=== PATIENT | female | born 1970 | race Caucasian/White ===

== ENCOUNTER → 2017-09-23 | Outpatient (CLI) | payer BC ==
--- NOTE | 2017-09-24 14:46 | MM ---
Reason for exam: screening (asymptomatic). Last mammogram was performed 3 years and 2 months ago. History: Family history of breast cancer in paternal grandmother at age 70. Physical Findings: A clinical breast exam by your physician is recommended on an annual basis and results should be correlated with mammographic findings. MG 3D Screening Mammo W/Cad Bilateral CC and MLO view(s) were taken. Prior study comparison: July 20, 2014, bilateral MG screening mammo w CAD. The breast tissue is heterogeneously dense. This may lower the sensitivity of mammography. Finding: There are typically benign round calcifications in the upper quadrant of both breasts. There is a chronic nodularity in the right breast. ASSESSMENT: Benign, BI-RAD 2 RECOMMENDATION: Routine screening mammogram of both breasts in 1 year.
== END | disposition home or self-care (01) ==
LOC: RADMAMWWP 09:14
PROVIDERS: ATTEND Family Medicine
DX: Z12.31 Encounter for screening mammogram for malignant neoplasm of breast (principal)
CPT/HCPCS: 77063; 77067

== ENCOUNTER → 2018-09-10 | Outpatient (CLI) | payer BC ==
[2018-09-10 14:12] LABS: Basophils % (A) 0 %; Eosinophils # (A) 0.2 k/uL (0-0.7); Eosinophils % (A) 2 %; HCT 42.7 % (34.0-46.0); HGB 13.7 gm/dL (11.4-16.0); Lymphocytes % (A) 31 %; MCH 29.9 pg (25.0-35.0); MCHC 32.2 g/dL (31.0-37.0); MCV 92.7 fL (80.0-100.0); Mean Platelet Volume 7.1; Monocytes # (A) 0.5 k/uL (0-1.0); Monocytes % (A) 5 %; Neutrophils # (A) 5.8 k/uL (1.3-7.7); Neutrophils % (A) 59 %; Platelet Count 285 k/uL (150-450); RDW 13.2 % (11.5-15.5); WBC 9.8 k/uL (3.8-10.6)
[2018-09-10 18:47] LABS: Albumin/Globulin Ratio 1.54 (1.20-2.10); Anion Gap 8.7 mmol/L (4.00-12.00); Calcium 9.3 mg/dL (8.7-10.3); Carbon Dioxide 23.3 mmol/L (21.6-31.8); Globulin 2.6 g/dL (1.6-3.3); Potassium 4.4 mmol/L (3.5-5.5); Total Bilirubin 0.5 mg/dL (0.2-1.2); Total Protein 6.6 g/dL (6.2-8.2)
[2018-09-10 18:55] LABS: T4, Free (Free Thyroxine) 1.1 ng/dL (0.80-1.80)
[2018-09-10 19:27] LABS: Vitamin D 25 Hydroxy 23.6 ng/mL (30.0-100.0)
== END ==
LOC: LABWHC1 13:19
PROVIDERS: ATTEND Nurse Practitioner Acute Care
DX: R56.9 Unspecified convulsions (principal)
CPT/HCPCS: 36415; 80053; 82306; 82607; 84439; 84443; 84481; 85025

== ENCOUNTER 2019-03-02 11:06 | Day surgery (SDC) | payer BC ==
[2019-02-26 11:45] VITALS: BMI 28.1
[~2019-03-02 11:06] MED LIST: LACTATED RINGERS 1,000 ML IV SCH; LIDOCAINE 1% 20 ML VIAL (10MG/ML) FOR IV START INTRADERMA PRN
[2019-03-02 11:34] VITALS: RESP 16; TEMP 97.9
[2019-03-02] MEDS ORDERED: LIDOCAINE 1% INJ 10MG/ML (20 ML MDV) ONE (13:03)
[2019-03-02] MEDS ORDERED: PROPOFOL 10 MG/ML 20 ML VIAL IV ONE (13:03)
--- NOTE | 2019-03-02 13:26 | P.PCN ---
Date of Procedure: 03/02/19 Description of Procedure: BRIEF HISTORY: Patient is a 48-year-old, pleasant, female patient who presents for outpatient EGD. The patient reports a sensation of dysphagia in the proximal esophagus. She also reports uncontrolled reflux for which she takes Tums as needed. No prior EGD reported. No unintentional loss or family history of esophageal or gastric cancer. PROCEDURE PERFORMED: Esophagogastroduodenoscopy with biopsy. PREOPERATIVE DIAGNOSIS: Esophageal dysphagia, GERD. ESTIMATED BLOOD LOSS: Minimal. IV sedation per anesthesia. PROCEDURE: After informed consent was obtained, the patient was brought into the endoscopy unit. IV sedation was administered by Anesthesia under continuous monitoring. Initially the Olympus GIF-190 video endoscope was inserted into the mouth. Esophagus intubated without any difficulty. It was gradually advanced into the stomach and duodenum and carefully examined. The bulb and the second part of the duodenum appeared normal, with biopsies taken. The scope at this time was withdrawn to the stomach, adequately insufflated with air, and upon careful examination, mucosa of the antrum, body, cardia and the fundus appeared normal, except for diffuse punctate erythema with some nodularity of the tissue the antrum and body suggestive of mild to moderate gastritis with biopsies taken. The scope was then withdrawn into the esophagus. The GE junction was located at 39 cm from the incisors and biopsied. The esophagus appeared normal and biopsied to rule out EOE. There were no erosions or ulcerations seen and the patient tolerated the procedure well. IMPRESSION: 1. Mild gastritis antrum and body, biopsied. 2. GE junction biopsy, duodenal biopsy, esophageal biopsy. RECOMMENDATIONS: The findings of this examination were discussed with the patient and her . Okay to resume diet. Have recommended the patient's her to trial of Prilosec OTC for symptom management daily. Await pathology from biopsies.
[2019-03-02 13:45] VITALS: BP 123/78; PULSE 61
== END 2019-03-02 14:26 | disposition home or self-care (01) ==
LOC: ORWHC2ENDO 11:06
PROVIDERS: ATTEND Internal Medicine
DX: K29.50 Unspecified chronic gastritis without bleeding (principal); K21.0 Gastro-esophageal reflux disease with esophagitis; R13.14 Dysphagia, pharyngoesophageal phase; Z87.891 Personal history of nicotine dependence; J45.909 Unspecified asthma, uncomplicated; D86.9 Sarcoidosis, unspecified; R56.9 Unspecified convulsions; Z79.1 Long term (current) use of non-steroidal anti-inflammatories (NSAID); Z79.899 Other long term (current) drug therapy; Z88.8 Allergy status to other drugs, medicaments and biological substances
CPT/HCPCS: 81025; 88305; 43239; J2001; J2704

== ENCOUNTER → 2020-08-08 | Outpatient (CLI) | payer BC ==
[2020-08-08 16:29] LABS: Basophils % (A) 0 %; Eosinophils # (A) 0.3 k/uL (0-0.7); Eosinophils % (A) 3 %; HCT 38.4 % (34.0-46.0); HGB 12.8 gm/dL (11.4-16.0); Lymphocytes # (A) 2.8 k/uL (1.0-4.8); Lymphocytes % (A) 29 %; MCH 30.7 pg (25.0-35.0); MCHC 33.5 g/dL (31.0-37.0); MCV 91.6 fL (80.0-100.0); Mean Platelet Volume 6.9; Monocytes # (A) 0.6 k/uL (0-1.0); Monocytes % (A) 7 %; Neutrophils # (A) 5.6 k/uL (1.3-7.7); Neutrophils % (A) 58 %; Platelet Count 277 k/uL (150-450); RBC 4.19 m/uL (3.80-5.40); RDW 13.4 % (11.5-15.5); WBC 9.5 k/uL (3.8-10.6)
[2020-08-08 16:38] LABS: African American GFR (CKD) >90 (>60 ml/min/1.73 sqM); Anion Gap 3 mmol/L; Blood Urea Nitrogen 18 mg/dL (7-17); Carbon Dioxide 27 mmol/L (22-30); Chloride 105 mmol/L (98-107); Glucose 83 mg/dL (74-99); Non-African American GFR(CKD) >90 (>60 ml/min/1.73 sqM); Potassium 4.6 mmol/L (3.5-5.1); Sodium 135 mmol/L (137-145)
== END | disposition home or self-care (01) ==
LOC: LABPAT 15:51
PROVIDERS: ATTEND Obstetrics & Gynecology
DX: Z01.818 Encounter for other preprocedural examination (principal); N81.6 Rectocele; N81.4 Uterovaginal prolapse, unspecified
CPT/HCPCS: 80051; 82565; 82947; 84520; 85025; 87086

== ENCOUNTER 2020-08-15 07:34 | Day surgery (SDC) | payer BC ==
[2020-08-03 14:07] VITALS: BMI 29.7
[~2020-08-15 07:34] MED LIST changes: +DEXAMETHASONE SOD PHOSPHATE 4 MG/ML 1 ML VIAL IV ONE; +HYDROmorphone 0.5 MG/0.5 ML SYRINGE IVP PRN; -LACTATED RINGERS 1,000 ML IV SCH; +LIDOCAINE 1% (10MG/ML) FOR IV START INTRADERMA PRN; -LIDOCAINE 1% 20 ML VIAL (10MG/ML) FOR IV START INTRADERMA PRN; +MIDAZOLAM 2 MG/2 ML VIAL IV PRN; +ONDANSETRON 4 MG/2 ML VIAL IVP ONE
[2020-08-15] MEDS: LACTATED RINGERS 1,000 ML IV SCH ×3 (08:08→20:30)
[2020-08-15] MEDS ORDERED: ONDANSETRON 4 MG/2 ML VIAL ONE (08:14)
[2020-08-15] MEDS ORDERED: DEXAMETHASONE SOD PHOSPHATE 4 MG/ML 1 ML VIAL IV ONE (08:25)
[2020-08-15] MEDS ORDERED: MIDAZOLAM 2 MG/2 ML VIAL IV ONE (08:38)
[2020-08-15] MEDS ORDERED: ROCURONIUM 10 MG/ML (10 ML VIAL) IV ONE (09:00)
[2020-08-15] MEDS ORDERED: PROPOFOL 10 MG/ML 20 ML VIAL IV ONE (09:00)
[2020-08-15] MEDS ORDERED: fentaNYL (PF) 50 MCG/ML 2 ML AMP ONE (09:00)
[2020-08-15] MEDS ORDERED: KETOROLAC 15 MG/ML 1 ML VIAL ONE (09:00)
[2020-08-15] MEDS ORDERED: MIDAZOLAM 2 MG/2 ML VIAL ONE (09:00)
[2020-08-15] MEDS ORDERED: SUCCINYLCHOLINE CHLORIDE 100 MG/5 ML SYR IV ONE (09:00)
[2020-08-15] MEDS ORDERED: MORPHINE SULFATE (PF) 0.3 MG/0.3 ML SYR ONE (09:00)
[2020-08-15] MEDS ORDERED: LIDOCAINE 1% INJ 10MG/ML (20 ML MDV) ONE (09:00)
[2020-08-15] MEDS ORDERED: GLYCOPYRROLATE 0.2 MG/ML 2 ML VIAL ONE (09:00)
[2020-08-15] MEDS ORDERED: NEOSTIGMINE 1 MG/ML 10 ML VIAL ONE (09:00)
[2020-08-15] MEDS ORDERED: BACITRACIN ZINC 500 UNIT/GM OINT 28.4 GM TUBE TOPICAL ONE (09:21)
[2020-08-15] MEDS ORDERED: VASOPRESSIN 20 UNIT/ML 1 ML VIAL SQ ONE (09:21)
[2020-08-15] MEDS ORDERED: LACTATED RINGERS 1,000 ML IV ONE (09:47)
[2020-08-15] MEDS ORDERED: METOCLOPRAMIDE 5 MG/ML 2 ML VIAL IVP PRN (10:34)
[2020-08-15] MEDS ORDERED: ONDANSETRON 4 MG/2 ML VIAL IVP PRN (10:34)
[2020-08-15] MEDS ORDERED: IBUPROFEN 600 MG TAB PO PRN (10:34)
[2020-08-15] MEDS ORDERED: SIMETHICONE 80 MG CHEWABLE PO PRN (10:34)
[2020-08-15] MEDS ORDERED: ZOLPIDEM 5 MG TAB PO PRN (10:34)
--- NOTE | 2020-08-15 10:34 | P.OP ---
Date of Procedure: 08/15/20 Preoperative Diagnosis: Symptomatic uterine prolapse, cystocele and rectocele. Postoperative Diagnosis: Same, normal-appearing ovaries bilaterally Procedure(s) Performed: Vaginal hysterectomy, anterior and posterior colporrhaphy's Anesthesia: ERAA Surgeon: Yadira Sullivan Vp Foundation #1: David Rodriguez Estimated Blood Loss (ml): 75 IV fluids (ml): 1,300 Urine output (ml): 200 Pathology: other (Cervix and uterus) Condition: stable Disposition: PACU Operative Findings: Normal-appearing ovaries bilaterally Description of Procedure: Patient is brought to the operating suite after spinal with Duramorph is placed in the preoperative area. She's placed in the dorsal lithotomy position after dental anesthetic is administered. Antibiotics are given. HCG is negative. The appropriate timeout was performed to assure proper patient and procedural identification. Bladder is drained for approximately 200 mL of clear yellow urine and the weighted speculum was placed into the vagina. Anterior lip of the cervix is grasped with a double-tooth tenaculum. The cervix is injected circumferentially with a dilute Pitressin solution. A standing rock blade scalpel is then used to incise the tissue circumferentially with a V position at 6:00. A sponge rolled finger is used to sweep the mucosa at all times well from the operative field to avoid bladder and/or ureteral injury. Peritoneum is entered with Metzenbaum scissors at 6:00, suture tied with 2-0 Vicryl and the large billed speculum was placed into the peritoneal cavity. Martin clamp is used on the right uterosacral cardinal ligament, this is clamped cut and suture ligated and held with a hemostat laterally. Same procedure is carried out contralaterally. Uterine vasculature is identified, clamped cut and suture ligated. 2 additional pedicles are taken superior to the vessels. The anterior peritoneum is entered at 12:00. Martin clamp was used around the final pedicles and the cervix and uterus are removed and sent to pathology for evaluation. 0 Vicryl suture is used to tie these pedicles, they are flashed and retied for excellent hemostasis. Sponge stick is then used to visualize the ovaries which are normal to inspection and therefore left in situ per patient's wishes. The shallow billed speculum is replaced now in the 2-0 Vicryl suture placed at 6:00 is brought around in a pursestring fashion to close the peritoneum. The uterosacral cardinal ligaments are now brought across to incorporate the opposite ligament as well as vaginal mucosa and the vaginal cough is closed. 2 additional [id number] sutures of 0 Vicryl used for final cuff closure. The anterior repair is then started. Allis clamps are used on the mucosa. It is injected in the midline with dilute Pitressin solution. Metzenbaum scissors are used to undermine the mucosa and it is opened to approximate 1.5 cm inferior to the urethra. Allis clamps are used to hold the vaginal mucosa in a fanlike fashion. Sponge rolled finger is used to sweep the mucosa from the underlying fascial plane. Villarreal catheter is placed in the urine is clear. 2-0 Vicryl sutures used in an interrupted fashion to bring the edges of the fascia together thereby completely reducing the cystocele. Metzenbaum scissors are used to trim the redundant mucosa. 2-0 Vicryl issues now in a running locking stitch to close the anterior repair. Hemostasis remained excellent. A triangular portion of tissue is removed from the perineal body. The posterior mucosa is injected in the midline with the same dilute Pitressin solution. Metzenbaum scissors are used to undermine the mucosa to the apex of the defect. A sponge rolled finger is used to sweep the fascia from the overlying mucosa. 2-0 Vicryl is used in an interrupted fashion to bring these edges of the fascia together in completely reduce the rectocele. Metzenbaum scissors trim the mucosa. 2-0 Vicryl is used in a running locking stitch to close the posterior repair with an episiotomy-like closure for final completion. The vagina is clean and dry. It is packed with 1/2 inch iodophor gauze with basic tracing. Villarreal is noted to be draining clear urine. All sponge needle and instrument counts are correct. Rectal exam revealed no defects. Patient is brought back to recovery room in excellent condition with stable vital signs including blood pressure 95/52, pulse 73, 99% O2 saturation. Estimated blood loss 75 mL, fluid replacement 1300 mL's.
[2020-08-15] MEDS: diphenhydrAMINE 50 MG/ML 1 ML VIAL IVP PRN ×2 (12:43→22:06)
--- NOTE | 2020-08-15 14:20 | P.ANPRN ---
Procedure Note - Anesthesia - Epidural/Spinal Spinal Time Out Performed: Yes Date of Procedure: 08/15/20 Procedure Start Time: 08:37 Procedure Stop Time: 08:40 Location of Patient: PreOp Indication: Acute Post-Operative Pain Sedation Type: Sedate with meaningful contact maintained Preparation: Sterile Dressing Position: Sitting Needle Guage: 25 Blood Aspirated: No Pain Paresthesia on Injection Noted: No Events: Uneventful and Well Tolerated (duramorph 300mcg plus fentanyl 25 mcg)
[2020-08-15] MEDS: SENNOSIDES-DOCUSATE SODIUM 1 EACH TAB PO SCH (22:05)
[2020-08-15] MEDS: KETOROLAC 15 MG/ML 1 ML VIAL IVP PRN (22:06)
[2020-08-16 02:02] VITALS: PULSE 80; RESP 16
[2020-08-16] MEDS: KETOROLAC 15 MG/ML 1 ML VIAL IVP PRN (07:23)
--- NOTE | 2020-08-16 07:44 | P.DS ---
Providers Date of admission: 08/15/20 Expected date of discharge: 08/16/20 Attending physician: Yadira Sullivan Primary care physician: [facility] Course: This is a 50-year-old white female who presented with increasingly symptomatic bulge per perineal body, cystocele and rectocele. After thorough consultation she elected to proceed with surgery. She declined the option of pessary. Second opinion offered and declined. Please see dictated history and physical for details. Patient was admitted yesterday and underwent a vaginal hysterectomy anterior and posterior colporrhaphy per my care. She did well intraoperatively with an estimate a blood loss of 75 mL's. Vaginal packing and Villarreal catheter were placed. Spinal with Duramorph was given. Please see dictated operative note for details. Ovaries appeared normal and were left in situ per the patient's wishes. This morning the patient is doing quite well. Her vital signs have remained stable and she is afebrile. Vaginal packing and Villarreal catheter had been roberto carlos vera. She is tolerating regular diet and passing flatus. Bladder training is pending. Her abdomen is soft and nontender. There is no CVA tenderness. She has active bowel sounds. She reports no pain. Only minimal vaginal bleeding is noted. Patient is judged to be in very good condition for discharge home. She will follow-up with me in the office in 2 weeks. I have reminded her no intercourse, tampons or douching. No heavy lifting, minimal stairclimbing, no driving for 2 weeks. She will use [id number] Advil or Aleve, or Motrin as needed for pain. I've asked her to call me with any fevers shakes or chills, foul smelling or bloody vaginal drainage, with difficulties regarding urination or defecation, with any pain not alleviated by [id number] products, or indeed with any concerns. Assessment: Doing well postoperative day #1 Patient Condition at Discharge: Good Plan - Discharge Summary New Discharge Prescriptions: No Action lamoTRIgine [LaMICtal] 100 mg PO BID Discharge Medication List lamoTRIgine [LaMICtal] 100 mg PO BID 02/26/19 [History] Follow up Appointment(s)/Referral(s): Yadira Sullivan MD [STAFF PHYSICIAN] - 2 Weeks Discharge Disposition: HOME SELF-CARE
[2020-08-16] MEDS: LACTATED RINGERS 1,000 ML IV SCH (07:46)
[2020-08-16 08:54] VITALS: BP 107/70; TEMP 98.5
[2020-08-16] MEDS ORDERED: lamoTRIgine 100 MG TAB PO SCH (09:00)
[2020-08-16] MEDS: SENNOSIDES-DOCUSATE SODIUM 1 EACH TAB PO SCH (09:07)
--- NOTE | 2020-08-16 09:37 | P.PN ---
Progress Note - Text Date: 08/16/2020 Time: 09:21 The patient is status post, vaginal hysterectomy. Postoperative day #1. Vital signs stable VAS: 0-1-10 Patient has no complaints of pain. The patient incurred some minimal itching yesterday, this itching is now subsiding. Pain meds to be managed by service.
== END 2020-08-16 10:40 | disposition home or self-care (01) ==
LOC: OR 07:34 → 6PED 10:20 → OR 08-16 10:40
PROVIDERS: ATTEND Obstetrics & Gynecology
DX: N81.4 Uterovaginal prolapse, unspecified (principal); D25.1 Intramural leiomyoma of uterus; N72 Inflammatory disease of cervix uteri; N80.0 Endometriosis of uterus; J45.909 Unspecified asthma, uncomplicated; Z87.442 Personal history of urinary calculi; J98.4 Other disorders of lung; F17.210 Nicotine dependence, cigarettes, uncomplicated; Z79.899 Other long term (current) drug therapy
CPT/HCPCS: 81025; 88307; 58260; 57250; J2250; J1200; J1100; J0690; J2405; J1885 ×2; 36415; 86850; 86900; 86901

== ENCOUNTER → 2020-09-19 | Outpatient (CLI) | payer BC ==
--- NOTE | 2020-09-19 12:09 | XR ---
EXAMINATION TYPE: XR chest 2V DATE OF EXAM: 09/19/2020 COMPARISON: NONE HISTORY: Chest pain TECHNIQUE: Frontal and lateral views of the chest are obtained. FINDINGS: There is no focal air space opacity. No evidence for pneumothorax. No pleural effusion. The cardiac silhouette size is within normal limits. The osseous structures are grossly intact. IMPRESSION: 1. No acute cardiopulmonary process.
== END | disposition home or self-care (01) ==
LOC: RADXRYALE 11:46
PROVIDERS: ATTEND Physician Assistant Medical
DX: D86.9 Sarcoidosis, unspecified (principal); R05 Cough
CPT/HCPCS: 71046

== ENCOUNTER → 2020-11-11 | Outpatient (CLI) | payer BC ==
--- NOTE | 2020-11-12 09:41 | CT ---
EXAMINATION TYPE: CT chest w con DATE OF EXAM: 11/11/2020 COMPARISON: None HISTORY: Sarcoidosis of lung, c/o SOB. CT DLP: 385.10 mGycm Automated exposure control for dose reduction was used. TECHNIQUE: CT scan of the chest is performed with IV Contrast, patient injected with 100 mL of Isovue 300. MIP Images are created on CT scanner and reviewed. 3D reconstructed images are created on an independent workstation and reviewed. FINDINGS: LUNGS: There is a small focal stellate nodule in the right lung apex which most likely represents an interstitial scar. The remainder the lungs are clear of interstitial, consolidative or masslike densi ty. There is no pleural effusion, pleural thickening or pneumothorax. The great vessels of the chest are normal and there is no mediastinal, hilar or axillary adenopathy. The visualized osseous structures and soft tissues of the thorax are intact. Limited scanning through the upper abdomen reveals no abnormality. IMPRESSION: Small stellate density in the right lung apex which most likely represents a small interstitial scar. No other significant abnormality seen.
== END | disposition home or self-care (01) ==
LOC: RADCTMAIN 16:08
PROVIDERS: ATTEND Internal Medicine Critical Care Medicine
DX: J98.4 Other disorders of lung (principal)
CPT/HCPCS: 71260; Q9967

== ENCOUNTER 2021-08-04 08:04 | Emergency (ER) | payer BC ==
--- NOTE | 2021-08-04 09:06 | ED ---
General Adult HPI - General Chief complaint: Fever Stated complaint: Covid+/BAM Time Seen by Provider: 08/04/21 08:05 Source: patient, RN notes reviewed, old records reviewed Mode of arrival: ambulatory Limitations: no limitations - History of Present Illness Initial comments: This is a 51-year-old female who presents emergency Department complaining of congestion and some cough. Patient states it started about 4 days ago. Patient states that the symptoms worsened a little and she believes she has been spiking a fever as of today. Patient took an at-home COVID test that was positive. Patient is coming in to hopefully get monoclonal antibodies. Patient states she does have asthma but she is not on a daily inhaler. Patient denies any smoking. Patient does say she has sarcoidosis. Patient states she is not vaccinated. Patient denies any chest pain. Patient denies any shortness of breath. - Related Data Home Medications Medication Instructions Recorded Confirmed lamoTRIgine [LaMICtal] 100 mg PO BID 02/26/19 08/04/21 Lacosamide [Vimpat] 100 mg PO BID 08/04/21 08/04/21 Allergies Allergy/AdvReac Type Severity Reaction Status Date / Time levetiracetam [From Kera] AdvReac SEVERE Verified 08/04/21 09:13 ANGER Review of Systems ROS Statement: Those systems with pertinent positive or pertinent negative responses have been documented in the HPI. ROS Other: All systems not noted in ROS Statement are negative. Past Medical History Past Medical History: Asthma, GERD/Reflux, Renal Disease, Respiratory Disorder, Seizure Disorder Additional Past Medical History / Comment(s): SEIZURE X2 DURING SLEEP, LAST SEIZURE 2011. SARCOIDOSIS. Gastritis. "I have kidney problems but not exactly sure what it is." History of Any Multi-Drug Resistant Organisms: None Reported Additional Past Surgical History / Comment(s): LUNG BIOPSY, procedure for varicose veins. Past Anesthesia/Blood Transfusion Reactions: No Reported Reaction Past Psychological History: Anxiety Smoking Status: Former smoker Past Alcohol Use History: None Reported Past Drug Use History: None Reported - Past Family History Mother Family Medical History: No Reported History General Exam - General Exam Comments Initial Comments: GENERAL: Patient is well-developed and well-nourished. Patient is nontoxic and well- hydrated and is in mild distress. ENT: Neck is soft and supple. No significant lymphadenopathy is noted. Oropharynx is clear. Moist mucous membranes. Neck has full range of motion without eliciting any pain. EYES: The sclera were anicteric and conjunctiva were pink and moist. Extraocular movements were intact and pupils were equal round and reactive to light. Eyelids were unremarkable. PULMONARY: Unlabored respirations. Good breath sounds bilaterally. No audible rales rhonchi or wheezing was noted. CARDIOVASCULAR: There is a regular rate and rhythm without any murmurs gallops or rubs. Femoral pulses are equal bilaterally ABDOMEN: Soft and nontender with normal bowel sounds. No palpable organomegaly was noted. There is no palpable pulsatile mass. SKIN: Skin is clear with no lesions or rashes and otherwise unremarkable. NEUROLOGIC: Patient is alert and oriented x3. Cranial nerves II through XII are grossly intact. Motor and sensory are also intact. Normal speech, volume and content. Symmetrical smile. MUSCULOSKELETAL: Normal extremities with adequate strength and full range of motion. No lower extremity swelling or edema. No calf tenderness. LYMPHATICS: No significant lymphadenopathy is noted PSYCHIATRIC: Normal psychiatric evaluation. Limitations: no limitations Course Vital Signs 08/04/21 08/04/21 08:08 08:32 Temperature 99.3 F Pulse Rate 88 Respiratory 18 20 Rate Blood Pressure 109/76 O2 Sat by Pulse 95 Oximetry Medical Decision Making - Medical Decision Making Patient was COVID positive. Chest x-ray showed no acute abnormality. Patient received monoclonal antibodies and we observe the patient for an hour. - Lab Data Lab Results 08/04/21 Range/Units 08:31 Coronavirus (PCR) Detected A (Not Detectd) Disposition Clinical Impression: COVID-19 Disposition: HOME SELF-CARE Condition: Good Instructions (If sedation given, give patient instructions): Coronavirus Disease 2019 (COVID-19) Is patient prescribed a controlled substance at d/c from ED?: No Referrals: Yossi Ureña DO [Primary Care Provider] - 1-2 days Time of Disposition: 10:47
[2021-08-04] MEDS: BAMLANIVIMAB (EUA) 700 MG, ETESEVIMAB (EUA) 1,400 MG in SODIUM CHLORIDE 0.9% 100 ML IVPB ONE (09:42)
--- NOTE | 2021-08-04 09:52 | XR ---
EXAMINATION TYPE: XR chest 1V portable DATE OF EXAM: 08/04/2021 COMPARISON: Chest x-ray September 19, 2020. CT chest November 11, 2020 HISTORY: Shortness of breath TECHNIQUE: Single frontal view of the chest is obtained. FINDINGS: There is no suspicious new focal air space opacity, pleural effusion, or pneumothorax seen . The cardiac silhouette size remains within normal limits. The osseous structures are intact. IMPRESSION: No acute process.
[2021-08-04] MEDS: SODIUM CHLORIDE 0.9% 50 ML IVPB ONE (10:15)
[2021-08-04 10:59] VITALS: RESP 18
[2021-08-04 12:03] VITALS: BP 119/87; PULSE 87; TEMP 98.3
== END 2021-08-04 11:45 | disposition home or self-care (01) ==
LOC: EC 08:04
DX: U07.1 COVID-19 (principal); J45.909 Unspecified asthma, uncomplicated; G43.909 Migraine, unspecified, not intractable, without status migrainosus; Z87.891 Personal history of nicotine dependence; Z88.8 Allergy status to other drugs, medicaments and biological substances; Z79.899 Other long term (current) drug therapy
CPT/HCPCS: 87635; 71045; 99283; J3490

== ENCOUNTER → 2021-11-29 | Outpatient (CLI) | payer BC ==
--- NOTE | 2021-11-30 11:34 | MM ---
Reason for exam: screening (asymptomatic). Last mammogram was performed 4 years and 2 months ago. History: Family history of breast cancer in paternal grandmother at age 70. Physical Findings: A clinical breast exam by your physician is recommended on an annual basis and results should be correlated with mammographic findings. MG 3D Screening Mammo W/Cad Bilateral CC and MLO view(s) were taken. Prior study comparison: September 23, 2017, bilateral MG 3d screening mammo w/cad. July 20, 2014, bilateral MG screening mammo w CAD. The breast tissue is heterogeneously dense. This may lower the sensitivity of mammography. There is no discrete abnormality. No significant changes when compared with prior studies. ASSESSMENT: Negative, BI-RAD 1 RECOMMENDATION: Routine screening mammogram of both breasts in 1 year.
== END | disposition home or self-care (01) ==
LOC: RADMAMWWP 10:14
PROVIDERS: ATTEND Family Medicine
DX: Z12.31 Encounter for screening mammogram for malignant neoplasm of breast (principal)
CPT/HCPCS: 77063; 77067

== ENCOUNTER → 2024-12-28 | Outpatient (CLI) | payer BC ==
--- NOTE | 2024-12-28 14:26 | MM ---
Reason for Exam: Screening (asymptomatic). Last mammogram was performed 3 year(s) and 1 month(s) ago. Patient History: Menarche at age 16. First Full-Term at age 21. Hysterectomy at age 50. Patient has history of breast feeding. Paternal grandmother had breast cancer, age 70. Risk Values: Pina 5 year model risk: 0.7%. NCI Lifetime model risk: 5.8%. Prior Study Comparison: 07/20/2014 Bilateral Screening Mammogram, [facility]. 09/23/2017 Bilateral Screening Mammogram, [facility]. 11/29/2021 Bilateral Screening Mammogram, [facility]. Tissue Density: The breasts are heterogeneously dense, which may obscure small masses. Findings: Analyzed By CAD. Right breast: There is no suspicious group of microcalcifications or new suspicious mass. Left breast: There is no suspicious group of microcalcifications or new suspicious mass. Overall Assessment: Negative, BI-RAD 1 Management: Screening Mammogram of both breasts in [address] [facility] will attempt to contact patient to return for supplemental views and ultrasound if indicated. Patient should continue monthly self-breast exams. A clinical breast exam by your physician is recommended on an annual basis. This exam should not preclude additional follow-up of suspicious palpable abnormalities. Note on Pina scores and lifetime risk: 1. A Pina score greater than 3% is considered moderate risk. If this is the case, consider specialist referral to assess eligibility for a risk reducing agent. 2. If overall lifetime risk for the development of breast cancer is 20% or higher, the patient may qualify for future screening with alternating mammogram and breast MRI. [facility], , 12/28/2024 2:24 PM. Electronically signed and approved by: Donis Morris DO
== END | disposition home or self-care (01) ==
LOC: RADMAMWWP 13:59
PROVIDERS: ATTEND Obstetrics & Gynecology
DX: Z12.31 Encounter for screening mammogram for malignant neoplasm of breast (principal); R92.333 Mammographic heterogeneous density, bilateral breasts; Z80.3 Family history of malignant neoplasm of breast
CPT/HCPCS: 77063; 77067